=== PATIENT | female | born 1985 | race Caucasian/White ===

== ENCOUNTER → 2021-07-06 | Outpatient (CLI) | payer OTHER ==
[~2021-07-06] MED LIST: DICLOFENAC SOD50 MG PO; FLAGYL500 MG PO; FLEXERIL PO; HYDROCODON-ACE1 EA11 PO; HYDROCODON-ACE1 EAC7 PO; IBUPROFEN 800800 M1 PO; MEDROLDOSEPACK PO; NAPROSYN500 MG PO; NORCO5 PO; NORFLEX100 MG PO; PREDNISONE 10 M10 MG PO; PREDNISONE 20 M20 M1 PO; PREDNISONE50 MG PO; TRAMADOL 50 MG50 MG PO; ZANAFLEX4 MG PO
[2021-07-06 16:14] LABS: HEMOGLOBIN 13.4 gm/dL (12.0-15.0); MCH 30.3 pg (26.0-34.0); MCHC 33.5 g/dL (28.0-37.0); MCV 90.4 fL (80.0-100.0); RBC 4.42 mil/uL (4.20-5.00); RDW 14.4 % (10.5-14.5)
[2021-07-06 16:31] LABS: APTT 28.8 Seconds (24.5-32.8); INR 0.95; PROTIME 10.4 Seconds (10.5-12.1)
[2021-07-06 16:32] LABS: ALBUMIN 4.6 g/dL (3.4-5.0); CALCIUM 9.4 mg/dL (8.5-10.1); CREATININE 0.8 mg/dL (0.6-1.0); TOTAL BILIRUBIN 0.5 mg/dL (0.2-1.0); TOTAL PROTEIN 7.7 g/dL (6.4-8.2)
[2021-07-06 16:56] LABS: URINE BILIRUBIN 1+ (Negative); URINE BLOOD NEGATIVE (Negative); URINE CLARITY SL CLOUDY; URINE COLOR YELLOW; URINE GLUCOSE-RANDOM* NEGATIVE (Negative); URINE KETONES TRACE (Negative); URINE LEUKOCYTES-REFLEX TRACE (Negative); URINE NITRITE-REFLEX NEGATIVE (Negative); URINE PROTEIN (DIPSTICK) TRACE (Negative); URINE SPECIFIC GRAVITY 1.025 (1.005-1.035)
[2021-07-06 16:58] LABS: ICTOTEST (BILI CONFIRMATORY) Negative (Negative)
== END ==
LOC: PAC 15:13
PROVIDERS: ATTEND Specialist
DX: Z01.812 Encounter for preprocedural laboratory examination (principal); Z20.822 Contact with and (suspected) exposure to COVID-19; M51.27 Other intervertebral disc displacement, lumbosacral region

== ENCOUNTER 2021-07-08 18:34 | Inpatient (IN) | payer OTHER ==
[~2021-07-08] VITALS: Ht 170.2 cm; Wt 54.4 kg
[2021-07-08 18:56] VITALS: BP 111/69
[2021-07-08 20:20] LABS: BASOPHILS 0.6 % (0.0-2.0); EOSINOPHILS 1.9 % (0.0-3.0); HEMATOCRIT 36.5 % (37.0-47.0); HEMOGLOBIN 12.2 gm/dL (12.0-15.0); LYMPHOCYTES 20.2 % (24.0-44.0); MCH 30.5 pg (26.0-34.0); MCHC 33.5 g/dL (28.0-37.0); MONOCYTES 6.2 % (1.0-8.0); PLATELET COUNT 326 thou/uL (150-400); POLYS 71.1 % (36.0-66.0); RBC 4.02 mil/uL (4.20-5.00); RDW 14.2 % (10.5-14.5); WBC 11.2 thou/uL (4.0-11.0)
[2021-07-08 20:45] LABS: CALCIUM 8.8 mg/dL (8.5-10.1); CREATININE 0.9 mg/dL (0.6-1.0); POTASSIUM 3.6 mmol/L (3.5-5.1)
[2021-07-09] MEDS ORDERED: NORFLEX100 MG PO (01:17)
[2021-07-09] MEDS ORDERED: TRAMADOL 50 MG50 MG PO (01:18)
[2021-07-09 05:12] LABS: CALCIUM 9.2 mg/dL (8.5-10.1); CREATININE 0.7 mg/dL (0.6-1.0); POTASSIUM 3.8 mmol/L (3.5-5.1)
[2021-07-09 09:40] LABS: HEMATOCRIT 34.8 % (37.0-47.0); HEMOGLOBIN 11.6 gm/dL (12.0-15.0); MCH 30.1 pg (26.0-34.0); MCHC 33.3 g/dL (28.0-37.0); MCV 90.3 fL (80.0-100.0); RBC 3.86 mil/uL (4.20-5.00); WBC 6.3 thou/uL (4.0-11.0)
[2021-07-09 12:00] VITALS: BP 119/84
[2021-07-09 15:01] VITALS: BP 122/95
[2021-07-09 15:47] VITALS: BP 147/74
--- NOTE | 2021-07-09 17:12 | NUR ---
35 year old female presents to the ED on 07/08/21 with complaints of back pain and noted to have surgery scheduled with Dr. Haddad on 07/09/21. The patient has been admitted for Herniated LS-SI disk herniation with radicular symptoms and pain control. CM will follow once Dr. Haddad has assessed and medical team determines discharge plans. Noting the patient is alert and oriented and making needs known at this time. CM will follow as needed.
[2021-07-09 20:30] VITALS: BP 130/86
--- NOTE | 2021-07-10 06:45 | NUR ---
ASSUMED CARE OF PT AT 1999. PT ASSESSED TO BE AOX4 35F PRESENTING POST LUMBAR 5-SACRAL. THROUGHOUT THE NIGHT PT WAS ABLE TO REST QUIETLY WITH FEW COMPLAINTS, VSS. DRESSING REMAINS C/D/I AND PT EXPRESSES MUCH SATISFACTION WITH RELIEF FROM SURGERY. PAIN CONTROLLED WITH ORAL PAIN MEDICATION, ON RA, AMBULATES SBA. WILL DC THIS AM. WILL PASS ON TO DAY SHIFT RN.
[2021-07-10 08:16] VITALS: BP 106/69
--- NOTE | 2021-07-10 15:06 | NUR ---
PT ADMITTED RELATED TO L5/S1 DISCECTOMY. CM REVIEWED CHART AND SPOKE WITH CARE TEAM. CM MET WITH PT AT BEDSIDE THIS DAY. PT APPEARED TO BE A&O X4. CM ROLE INTRODUCED. PT INDICATED SHE RESIDES IN A HOUSE WITH HER BOYFIREND AND THEIR 5 KIDS. PT INDICATED SHE HAS A RAMP TO ENTER AND NO STEPS INSIDE. PT INDICATED HER PCP IS DR. JU BENNETT AT [facility]. PT INDICATED SHE PLANS TO RETURN HOME ONCE MEDICALLY STABLE. CARE TEAM INDICATED PT MAY BE DC READY TOMORROW CM FOLLOWING REGARDING DC PLANNING. NO NEEDS ANTICIAPTED.
--- NOTE | 2021-07-10 19:18 | NUR ---
PT ALERT AND ORIENTED TIMES FOUR. VSS.PT C/O PAIN PRN PAIN MEDICATIONS GIVEN WITH GOOD RELEIF. PT UP AB NIRALI WITH STEADY GAIT. PT TOLERATES MEDS AND MEALS.
[2021-07-10 20:14] VITALS: BP 103/65
--- NOTE | 2021-07-11 04:40 | NUR ---
PATIENT AOX4 MAKES NEEDS KNOWN. PAIN CONTROLLED THIS SHIFT. BACK INCISION ARE C/D/I. PATIENT IS UP AT NIRALI. PATIENT IN BED ASLEEP AT THIS TIME BREATHING REGULAR AND UNLABOURED.
[2021-07-11 08:00] VITALS: BP 109/70
[2021-07-11 16:00] VITALS: BP 118/82
[2021-07-11 19:52] VITALS: BP 101/56
--- NOTE | 2021-07-12 04:47 | NUR ---
[facility] when checked on during frequent rounds. She c/o chronic back pain and po pain meds given (see emar) with some relief noted. No other complaints offered.
[2021-07-12 07:38] VITALS: BP 95/63
[2021-07-12 09:00] VITALS: BP 95/63
[2021-07-12 13:50] VITALS: BP 95/63
--- NOTE | 2021-07-12 15:10 | NUR ---
CARE TEAM INDICATED THAT PT IS MEDICALLY STABLE TO DC HOME THIS DAY. PT IS TO DC HOME TO SELF CARE. PT'S FAMILY TO PROVIDE TRASNP[employer] HOME THIS DAY. NO OTHER CM INTERVENTION INDICATED. CASE CLOSED.
--- NOTE | 2021-07-12 16:25 | NUR ---
RN ASSUMED PT'S CARE AT 0700-1500PM, PT IS A&OX4, PT'S PIAN HAS IMPROVED, PT IS ON ROOM AIR, PT'S VS ARE STABLE, RN RECEIVED ORDER TO DC PT TO HOME, PT AND PT'S MONTHER UNDERSTAND DC TEACHING WELL. PT'S [employer] PT AT 1500PM.
== END 2021-07-12 15:00 | disposition home or self-care (01) | DRG 520 ==
LOC: ER 18:34 → EROBS 20:51 → 4W 20:51 → EROBS 20:52 → 4W 07-09 20:38
PROVIDERS: Internal Medicine; Nurse Practitioner Family; Student in an Organized Health Care Education/Training Program; ADMIT Hospitalist; ATTEND Hospitalist
PROC: 0SB40ZZ Excision of Lumbosacral Disc, Open Approach (ICD-10-PCS; principal; 2021-07-09)
DX: M51.27 Other intervertebral disc displacement, lumbosacral region (principal); Z20.822 Contact with and (suspected) exposure to COVID-19; Z88.8 Allergy status to other drugs, medicaments and biological substances; Z79.899 Other long term (current) drug therapy; F17.210 Nicotine dependence, cigarettes, uncomplicated
CPT/HCPCS: 10040